=== PATIENT | female | born 1940 | race Caucasian/White ===

== ENCOUNTER → 2018-10-18 | Outpatient (CLI) | payer MEDICARE, OTHER ==
[~2018-10-18] MED LIST: ALEN1TAB3 PO; ALPR.5T PO; AMLO5TAB2 PO; ASP81CT PO; BNZ20T PO; CALC-80 PO; CALC600T PO; CHOL100011 PO; EZET1TAB44 PO; HYDR12.56 PO; LABE100T2 PO; LVT.1T PO; MULT-608 PO; NAPR220T76 PO; OMG1KC PO
--- NOTE | 2018-10-18 10:48 | Diagnostic Imaging Report ---
PROCEDURE: MR imaging of the brain without contrast. TECHNIQUE: Multiplanar, multisequence MR imaging of the brain was performed without contrast. INDICATION: Hypertension and anisocoria. FINDINGS: There are no foci of abnormal diffusion restriction. There is mild generalized cerebral cortical atrophy and mild chronic appearing periventricular white matter disease likely small vessel sequelae. There were no findings suggestive of focal or generalized cerebral edema. No mass or mass effect. No abnormal extra-axial fluid collection. There were no findings of hemorrhage. The midline structures are nondisplaced and there is no evidence for an elevation to the intracranial pressures. There is mild membrane thickening in the paranasal sinuses without air-fluid level. The orbits had an unremarkable appearance. IMPRESSION: No infarct, hemorrhage, mass or acute finding. Mild chronic changes with atrophy and white matter small vessel sequelae with mild paranasal sinus membrane disease. Dictated by: Dictated on workstation # [id number]
== END ==
LOC: RAD 08:25
PROVIDERS: ATTEND Internal Medicine
DX: J32.8 Other chronic sinusitis (principal); G31.89 Other specified degenerative diseases of nervous system; R90.82 White matter disease, unspecified; H57.04 Mydriasis; H57.02 Anisocoria; I10 Essential (primary) hypertension
CPT/HCPCS: 70551

== ENCOUNTER 2022-03-31 13:51 | Emergency (ER) | payer MEDICARE, OTHER ==
[~2022-03-31] VITALS: Ht 162 cm; Wt 58.0 kg
--- NOTE | 2022-03-31 14:20 | ED Lower Extremity ---
General Chief Complaint: Trauma-Non Activation Stated Complaint: FALL HEAD/LEFT HIP PAIN Nursing Triage Note: pt states same level fall with lt hip pain. denies loc, no head or neck pain. 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 She was cleaning a cabinet, spraying some and dust and did not realize it had fallen onto her wooden floor. She took a step and slipped and fell backwards onto her left side. She did hit her head on a chair on the way down. No loss of consciousness. She is not on blood thinners. She was able to get up under her own power and ambulate around the house but the more she walks the worse her hip hurt. She denies numbness weakness or tingling. No loss of bowel or bladder. No lacerations. She did take 4 ibuprofen prior to arrival. No recent illnesses. All other review of systems reviewed and negative except as stated. Onset: just prior to arrival Pain/Injury Location: left hip Method of Injury: fell Modifying Factors: Improves With Immobilization; Worse With Movement Allergies and Home Medications Allergies Coded Allergies: No Known Drug Allergies (Unverified , 03/08/11) Patient Home Medication List Home Medication List Reviewed: Yes Alendronate Sodium/Vitamin D3 (Fosamax Plus D 70 Mg-2,800 Iu) 1 Each Tablet, 1 TAB PO EVERY SAT., (Reported) Entered as Reported by: TIAGO PACE on 03/08/11 173 Alprazolam (Xanax) 0.5 Mg Tablet, 0.5 MG PO HS PRN, (Reported) Entered as Reported by: TIAGO PACE on 03/08/11 1739 Amlodipine Besylate (Amlodipine Besylate) 5 Mg Tablet, 5 MG PO DAILY, (Reported) Entered as Reported by: TIAGO PACE on 03/08/11 1715 Aspirin (Aspirin 81 Mg Chew Tab) 81 Mg Chew, 81 MG PO DAILY, (Reported) Entered as Reported by: TIAGO PACE on 03/08/11 1733 Benazepril Hcl (Lotensin 20 Mg) 20 Mg Tablet, 20 MG PO DAILY, (Reported) Entered as Reported by: TIAGO PACE on 03/08/11 171 Calcium Carbonate (Calcarb 600) 600 Mg Tablet, 600 MG PO BID, (Reported) Entered as Reported by: MICHAEL SUN on 03/09/11 014 Cholecalciferol (Vitamin D3) 1,000 Unit Capsule, 1,000 UNIT PO DAILY, (Reported) Entered as Reported by: MICHAEL SUN on 03/09/11 014 Ezetimibe/Simvastatin (Vytorin 10-40 Mg Tablet) 1 Each Tablet, 1 TAB PO HS, (Reported) Entered as Reported by: TIAGO PACE on 03/08/11 172 Hydrochlorothiazide (Hydrochlorothiazide) 12.5 Mg Tablet, 12.5 MG PO DAILY, (Reported) Entered as Reported by: TIAGO PACE on 03/08/11 171 Labetalol Hcl (Normodyne) 100 Mg Tablet, 100 MG PO BID, (Reported) Entered as Reported by: TIAGO PACE on 03/08/11 171 Levothyroxine Sodium (Levothyroxine 100 Mcg Tab) 100 Mcg Tablet, 100 MCG PO DAILY, (Reported) Entered as Reported by: TIAGO PACE on 03/08/11 171 Multivitamins (Multiple Vitamin) 1 Tab Tablet, 1 TAB PO DAILY, (Reported) Entered as Reported by: TIAGO PACE on 03/08/11 173 Naproxen Sodium (Aleve) 220 Mg Tablet, 440 MG PO Q12H PRN, (Reported) Entered as Reported by: TIAGO PACE on 03/08/11 173 [place] 3 Polyunsat Fatty Acids (Fish Oil) 1,000 Mg Cap, 2,000 MG PO TID, (Reported) Entered as Reported by: TIAGO PACE on 03/08/11 173 Review of Systems Constitutional: see HPI EENTM: no symptoms reported Respiratory: no symptoms reported Cardiovascular: no symptoms reported Gastrointestinal: no symptoms reported Genitourinary: no symptoms reported Musculoskeletal: joint pain (Left) Skin: no symptoms reported All Other Systems Reviewed Negative Unless Noted: Yes Past Wlihzgg-Cyiyof-Bprpqg Hx Past Medical History Reproductive Disorders: No Physical Exam Vital Signs Vital Signs - First Documented 03/31/22 13:57 Temp 36.3 Pulse 76 Resp 18 B/P (MAP) 144/72 (96) Pulse Ox 98 O2 Delivery Room Air Capillary Refill : Less Than 3 Seconds Height, Weight, BMI Height: '" Weight: lbs. oz. kg; 17.00 BMI Method: General Appearance: WD/WN, no apparent distress HEENT: PERRL/EOMI, normal ENT inspection Neck: non-tender, full range of motion, supple, normal inspection Cardiovascular: regular rate, rhythm Respiratory: lungs clear, normal breath sounds, no respiratory distress, no accessory muscle use Gastrointestinal: normal bowel sounds, non tender, soft Back: normal inspection, no vertebral tenderness Hips: right hip non-tender, right hip normal inspection, right hip normal range of motion, right hip no evidence of injury; left hip pain (Tenderness to palpation low left hip over the greater trochanter) Legs: bilateral leg non-tender, bilateral leg normal inspection, bilateral leg normal range of motion, bilateral leg no evidence of injury Knees: bilateral knee non-tender, bilateral knee normal inspection, bilateral knee normal range of motion, bilateral knee no evidence of injury Ankles: bilateral ankle non-tender, bilateral ankle normal inspection, bilateral ankle normal range of motion, bilateral ankle no evidence of injury Feet: bilateral foot non-tender, bilateral foot normal inspection, bilateral foot normal range of motion, bilateral foot no evidence of injury Neurologic/Tendon: normal sensation, normal motor functions 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, no motor/sensory deficits, alert, normal mood/affect, oriented x 3 Skin: normal color, warm/dry Progress/Results/Core Measures Results/Orders My Orders Orders - JULIA TAVERAS MD Pelvis With Left Hip 2-3 Views (03/31/22 14:20) Vital Signs/I&O 03/31/22 03/31/22 13:57 15:27 Temp 36.3 36.3 Pulse 76 65 Resp 18 18 B/P (MAP) 144/72 (96) 140/75 Pulse Ox 98 98 O2 Delivery Room Air Room Air Blood Pressure Mean: 96 Diagnostic Imaging Diagonstic Imaging: Xray Comments [facility], [place] NAME: NGA HERR Marques MED REC#: [id number] PT STATUS: REG ER : 1940 PHYSICIAN: JULIA TAVERAS MD ADMIT DATE: 03/31/22/ER Draft Date of Exam:03/31/22 PELVIS WITH LEFT HIP 2-3 VIEWS EXAMINATION: Left hip unilateral 2 or 3 views (w/pelvis when done) HISTORY: Fall, pain. COMPARISON: None available. FINDINGS: There are no acute fractures or dislocations. The joint spaces appear maintained. No acute soft tissue abnormalities appreciated. IMPRESSION: No acute fracture. Dictated on workstation # [id number] Dict: 03/31/22 1457 Trans: 03/31/22 1502 [id number] Interpreted by: PETER GUZMÁN MD Electronically signed by: Departure Impression Primary Impression: Contusion of left hip Qualified Codes: S70.02XA - Contusion of left hip, initial encounter Disposition: HOME, SELF-CARE Condition: Stable Departure-Patient Inst. Decision time for Depature: 15:17 Referrals: ENEIDA CHRISTIAN DO (PCP/Family) Primary Care Physician Patient Instructions: Minor Contusion ED Add. Discharge Instructions: You can take [id number] ibuprofen, take 3 pills instead of 4 which would be 600 mg every 6 hours with food as needed for pain. Alternate ice and heat to the sore area of your left hip for the next 2-3 days. If you notice any new symptoms that are concerning please come back to the emergency department for reevaluation or follow-up with your primary care provider. Copy Copies To 1: ENEIDA CHRISTIAN KATHRYN M MD Mar 31, 2022 14:20
--- NOTE | 2022-03-31 15:02 | Diagnostic Imaging Report ---
EXAMINATION: Left hip unilateral 2 or 3 views (w/pelvis when done) HISTORY: Fall, pain. COMPARISON: None available. FINDINGS: There are no acute fractures or dislocations. The joint spaces appear maintained. No acute soft tissue abnormalities appreciated. IMPRESSION: No acute fracture. Dictated by: Dictated on workstation # [id number]
[2022-03-31 15:27] VITALS: BP 140/75
== END 2022-03-31 15:27 | disposition home or self-care (01) ==
LOC: EDUNIT# 13:51 → ER 13:53
DX: S70.02XA Contusion of left hip, initial encounter (principal); W18.30XA Fall on same level, unspecified, initial encounter